=== PATIENT | female | born 1985 | race African-American/Black ===

== ENCOUNTER 2019-03-26 23:21 | Emergency (ER) | payer MEDICAID ==
[~2019-03-26] VITALS: Ht 170.2 cm; Wt 75.9 kg
[2019-03-26 23:23] VITALS: BP 110/52
[2019-03-26] MEDS ORDERED: METF-960 PO (23:40)
[2019-03-27 00:07] LABS: GLUCOSE,POINT OF CARE 149 MG/DL (70-110)
[2019-03-27] MEDS ORDERED: IBUPROFEN 800 MG TABLET PO ONE (01:30)
[2019-03-27] MEDS ORDERED: AMOXICILLIN TRIHYDRATE 250 MG CAPSULE PO ONE ×3 (01:30→01:45)
== END 2019-03-27 02:03 | disposition home or self-care (01) ==
LOC: EMS 23:21
DX: H61.22 Impacted cerumen, left ear (principal); E11.9 Type 2 diabetes mellitus without complications; Z79.84 Long term (current) use of oral hypoglycemic drugs